=== PATIENT | male | born 1960 | race Hispanic/Latino ===

== ENCOUNTER 2018-10-28 18:47 | Inpatient (IN) | payer OTHER ==
[~2018-10-28] VITALS: Ht 172.7 cm; Wt 71.2 kg
[2018-10-28] MEDS ORDERED: NITROGLYCERIN 50 MG/D5% WATER 1 BOT ONE (19:25)
[2018-10-28] MEDS ORDERED: ASPIRIN 81MG TAB.CHEW ONE (19:26)
[2018-10-28 19:55] LABS: EOSINOPHILS % (AUTO) 1.8 % (0.0-8.0); LYMPHOCYTES % (AUTO) 21.4 % (21.0-51.0); MEAN CORPUSCULAR HEMOGLOBIN 29.1 pg (27.0-33.0); MEAN CORPUSCULAR HGB CONC 33.9 g/dL (32.0-36.0); MEAN CORPUSCULAR VOLUME 85.9 fL (79-99); MONOCYTES % (AUTO) 7.2 % (3.0-13.0); NEUTROPHILS % (AUTO) 66.6 % (40.0-77.0); PLATELET COUNT (AUTO) 259 K/uL (130-400); RED BLOOD CELL COUNT(AUTO) 4.89 MIL/uL (4.50-6.20); RED CELL DISTRIBUTION WIDTH 14.8 % (11.0-15.5); WHITE BLOOD COUNT (AUTO) 8.8 K/uL (4.8-10.8)
[2018-10-28 20:16] LABS: INR 0.95 (0.85-1.15); PARTIAL THROMBOPLASTIN TIME 29.4 SEC (26.3-35.5)
[2018-10-28 20:23] LABS: POTASSIUM 3.9 mmol/L (3.5-5.1)
[2018-10-28 20:26] LABS: AMPHET/METH SCREEN,URINE NEGATIVE (NEGATIVE); BARBITURATE SCREEN, URINE NEGATIVE (NEGATIVE); BENZODIAZEPINES SCREEN,URINE NEGATIVE (NEGATIVE); CANNABINOID SCREEN,URINE POSITIVE (NEGATIVE); COCAINE SCREEN,URINE NEGATIVE (NEGATIVE); OPIATE SCREEN,URINE NEGATIVE (NEGATIVE); PHENCYCLIDINE SCREEN,URINE NEGATIVE (NEGATIVE)
[2018-10-28 20:27] LABS: B-TYPE NATRIURETIC PEPTIDE 138 pg/mL (0-100)
[2018-10-28 20:30] LABS: BILIRUBIN,TOTAL 0.4 mg/dL (0.2-1.0); TOTAL PROTEIN, SERUM 8.1 g/dL (6.0-8.3)
[2018-10-28] MEDS: SODIUM CHLORIDE 0.9% 1000ML 1,000 ML IV SCH (22:04)
[2018-10-28] MEDS ORDERED: SODIUM CHLORIDE 0.9% 1000ML 1,000 ML IV ONE (22:53)
[2018-10-28] MEDS ORDERED: NITROGLYCERIN 1GM/1 INCH PACKET TD SCH (23:00)
[2018-10-28] MEDS ORDERED: NITROGLYCERIN 50 MG/D5% WATER 250 BOT IV PRN (23:30)
[2018-10-28 23:40] LABS: CHOLESTEROL 217 mg/dL (<200); HDL CHOLESTEROL 52 mg/dL (29-71); LDL DIRECT 151 mg/dL (0-99); TRIGLYCERIDES 92 mg/dL (30-200)
[2018-10-28 23:50] LABS: TROPONIN I 0.07 ng/mL (0.00-0.06)
[2018-10-29] VITALS (50 sets, daily range): BP systolic 132–181; BP diastolic 66–110
--- NOTE | 2018-10-29 01:45 | NUR ---
TRANSFERRED FROM ER STRETCHER TO ICU BED AMBULATING WITHOUT DIFFICULTY; GAIT IS STRONG AND PURPOSEFUL. O2 APPLIED VIA N/C AT 2LPM; GOVERNMENT AUDITOR LEADS APPLIED WELL PULSE OX PROBE AND BP CUFF. PT IS HYPERTENSIVE WITH NTG DRIP INFUSING AT 45MCG/MIN. PT DENIES ANY CHEST PAIN. WILL CONTINUE TO MONITOR.
--- NOTE | 2018-10-29 02:00 | NUR ---
NTG RATE INCREASED FOR ELEVATED BP TO 75MCG (22.5ML/HR). WILL MONITOR CLOSELY.
--- NOTE | 2018-10-29 03:55 | NUR ---
PT C/O HEADACHE. EDUCATED THAT NTG SIDE EFFECT OFTEN CAUSES H/A. PT DENIES ANY CHESTPAIN REQUESTING NTG BE TURNED OFF; RATE DECREASED. WILL ADMINISTER APRESOLINE FOR HYPERTENSION.
[2018-10-29] MEDS: HYDRALAZINE HCL 20 MG/ML VIAL IV PRN (03:58)
[2018-10-29] MEDS ORDERED: MORPHINE SULFATE 2 MG/ML 1ML SYG IVP PRN (05:45)
--- NOTE | 2018-10-29 05:45 | NUR ---
PT C/O CHEST PAIN. NTG DRIP RATE INCREASED. EMESIS DONE OFF SIDE OF BED. BP REMAINS ELEVATED. ALSO C/O CHILLS. TEMP=97.7. CX=113. NTG RATE AGAIN INCREASED TO EFFECT. EKG DONE. NOTIFIED ZACK OF PT STATUS. ORDERS RECEIVED AND CARRIED OUT.
[2018-10-29 05:57] LABS: BASOPHILS % (AUTO) 0.9 % (0.0-5.0); HEMATOCRIT 42.1 % (42-54); LYMPHOCYTES % (AUTO) 12.3 % (21.0-51.0); MEAN CORPUSCULAR HEMOGLOBIN 29.5 pg (27.0-33.0); MEAN CORPUSCULAR HGB CONC 34.1 g/dL (32.0-36.0); MEAN CORPUSCULAR VOLUME 86.5 fL (79-99); MONOCYTES % (AUTO) 4.9 % (3.0-13.0); NEUTROPHILS % (AUTO) 80.9 % (40.0-77.0); PLATELET COUNT (AUTO) 243 K/uL (130-400); RED BLOOD CELL COUNT(AUTO) 4.86 MIL/uL (4.50-6.20); RED CELL DISTRIBUTION WIDTH 14.6 % (11.0-15.5); WHITE BLOOD COUNT (AUTO) 12.8 K/uL (4.8-10.8)
[2018-10-29 06:11] LABS: CREATINE KINASE, TOTAL 98 U/L (21-232); MYOGLOBIN 41 ng/mL (10-92); TROPONIN I < 0.04 ng/mL (0.00-0.06)
--- NOTE | 2018-10-29 06:20 | NUR ---
BEVELER CHUCK HAS PAGED TWICE. AWAITING CALL BACK.
--- NOTE | 2018-10-29 06:35 | NUR ---
BARBARA CASTELAN MADE AWARE OF NEED TO SPEAK TO . CELL NUMBER RECEIVED AND CALLING NOW.
--- NOTE | 2018-10-29 06:40 | NUR ---
SPOKE TO . UPDATED ON PT STATUS, VS'S, LAB RESULTS, AND NTG DRIP RATE. ORDERS RECEIVED.
[2018-10-29] MEDS: ONDANSETRON HCL 4 MG/2 ML VIAL IVP PRN ×2 (06:48→16:37)
--- NOTE | 2018-10-29 07:00 | NUR ---
REPORT GIVEN TO JUAN DANIEL JOINER NOW. RV=[id number], PT RESTING WELL AFTER GIVING MORPHINE AND ZOFRAN. NO FURTHER VOMITING. PT STATED CP RATED AT "1 OR 2" ON SCALE 0-10. DUE TO RECENT EMESIS AND BP STABLE AT THIS TIME, MARISEL FRANCES WANTS TO HOLD OFF ON GIVING TRANDATE AND PO ELIXIR KCL UNTIL CONTACTING . CHAZ ROD NOW.
[2018-10-29] MEDS ORDERED: POTASSIUM CHLORIDE 10% ELIXIR 20 MEQ/15 ML UDCUP ONE (07:01)
[2018-10-29] MEDS: LABETALOL HCL 5 MG/ML 20ML VIAL IV SCH ×6 (07:18→16:17)
[2018-10-29] MEDS ORDERED: MAGNESIUM 2GM PREMIX 50ML 50 ML IV PRN (08:00)
[2018-10-29] MEDS ORDERED: POTASSIUM CHLORIDE 20 MEQ ERTAB PO PRN (08:00)
[2018-10-29] MEDS ORDERED: LIDOCAINE HCL-MPF 1% 2ML VIAL IVP PRN (08:00)
[2018-10-29] MEDS: POTASSIUM CHLORIDE 20MEQ/100ML 100 ML IV PRN ×2 (08:10→11:32)
[2018-10-29] MEDS: SODIUM CHLORIDE 0.9% 1000ML 1,000 ML IV SCH ×3 (08:37→19:43)
[2018-10-29] MEDS ORDERED: ASPIRIN 325 MG TABLET PO SCH (09:00)
[2018-10-29] MEDS: ENOXAPARIN SODIUM 40 MG/0.4 ML SYRINGE SQ SCH (09:00)
[2018-10-29] MEDS ORDERED: ATORVASTATIN CALCIUM 20 MG TABLET PO SCH (09:00)
[2018-10-29] MEDS ORDERED: METOPROLOL TARTRATE 25 MG TAB PO SCH (09:00)
[2018-10-29] MEDS ORDERED: LISINOPRIL 20 MG TABLET PO SCH (09:00)
[2018-10-29] MEDS: POTASSIUM CHLORIDE 10% ELIXIR 20 MEQ/15 ML UDCUP PO SCH ×5 (09:00→19:40)
[2018-10-29] MEDS: FAMOTIDINE 20MG TAB 20 MG TAB PO SCH ×2 (10:30→20:12)
--- NOTE | 2018-10-29 11:20 | NUR ---
DR NAQVI AT [facility] EXPLAINS NEED FOR LHC TO PT AND SPOUSE - EXPLAINED PROCEDURE AND RISKS - QUESTIONS ANSWERED - SEE ORDERS.-
[2018-10-29 12:07] LABS: TROPONIN I 2.01 ng/mL (0.00-0.06)
[2018-10-29] MEDS ORDERED: IOHEXOL-350 50ML VIAL IV ONE (12:08)
[2018-10-29] MEDS ORDERED: NITROGLYCERIN 5 MG/ML 10 ML VIAL IV ONE (12:08)
[2018-10-29] MEDS ORDERED: IOHEXOL 350 MG/ML 100ML INFUS..BTL IV ONE ×2 (12:08→13:17)
[2018-10-29] MEDS ORDERED: LIDOCAINE HCL 2% 20ML ONE (12:08)
--- NOTE | 2018-10-29 12:16 | NUR ---
TO PRECISION PRINTING WORKER VIA BED BY PRECISION PRINTING WORKER TEAM.
[2018-10-29] MEDS ORDERED: BIVALIRUDIN 250 MG/VIAL IV ONE (12:57)
[2018-10-29] MEDS ORDERED: LABETALOL 20 MG/4 ML DISP.SYRIN IV ONE ×2 (13:11→14:10)
[2018-10-29] MEDS ORDERED: VERAPAMIL HCL 2.5 MG/ML VIAL ONE (13:17)
[2018-10-29] MEDS ORDERED: ADENOSINE 3 MG/ML 2ML VIAL IV ONE (13:17)
[2018-10-29] MEDS ORDERED: EPTIFIBATIDE 2 MG/ML 10 ML VIAL IVP ONE (13:34)
[2018-10-29] MEDS ORDERED: EPTIFIBATIDE 75MG/100ML BOTTLE 100 ML IV ONE (13:34)
[2018-10-29] MEDS ORDERED: TICAGRELOR 90 MG TABLET ONE (13:43)
[2018-10-29] MEDS ORDERED: ASPIRIN 325MG EC TAB 325 MG TABLET.DR PO ONE (13:43)
[2018-10-29] MEDS ORDERED: LOSARTAN 50 MG TABLET PO SCH (13:45)
[2018-10-29] MEDS ORDERED: NITROGLYCERIN 50 MG/D5% WATER 1 BOT IV PRN (13:45)
[2018-10-29] MEDS ORDERED: EPTIFIBATIDE 75MG/100ML BOTTLE 100 ML IV PRN (14:30)
--- NOTE | 2018-10-29 14:37 | NUR ---
RECEIVED FROM ASSISTANT SPA MANAGER VIA BED - JOE CP - RT GROIN SITE STABLE - SEE POST CATH ASSESSMENT INTERVENTION. NOTE MOUTH BLOODY FROM POOR DENTATION W INTEGRILLIN DRIP - DR. NAQVI AWARE.
--- NOTE | 2018-10-29 15:19 | NUR ---
cm note met with pateint and , pt resides at home with spouse, independent with adls and self care. no dme. dc plan is back to home. no dc needs. Addendum: 10/29/18 at 1521 by JUDD DENTON CM Amended: Links added.
[2018-10-29] MEDS: CARVEDILOL 6.25 MG TABLET PO SCH ×2 (15:25→20:12)
[2018-10-29] MEDS: LOSARTAN 50 MG TABLET PO SCH (15:26)
--- NOTE | 2018-10-29 16:45 | NUR ---
EMESIS: DARK TEA COLORED LIQUID - VOMITED 3 CONSECUTIVE TIMES. UMER - SEE HERIBERTO Francois DR. PAGEMimi.
[2018-10-29 16:46] LABS: OCCULT BLOOD,GASTRIC FLUID POSITIVE (NEGATIVE)
[2018-10-29] MEDS ORDERED: PANTOPRAZOLE 40 MG/VIAL IVP SCH (17:00)
[2018-10-29 17:16] LABS: HEMATOCRIT 36.1 % (42-54)
[2018-10-29] MEDS ORDERED: NITROGLYCERIN 50 MG/D5% WATER 250 BOT IV PRN (17:30)
[2018-10-29] MEDS: TICAGRELOR 90 MG TABLET PO SCH (20:11)
[2018-10-30] VITALS (20 sets, daily range): BP systolic 114–177; BP diastolic 52–104
[2018-10-30 00:13] LABS: HEMATOCRIT 36.1 % (42-54)
[2018-10-30 04:09] LABS: HEMATOCRIT 36.4 % (42-54); MEAN CORPUSCULAR HEMOGLOBIN 28.8 pg (27.0-33.0); MEAN CORPUSCULAR HGB CONC 33.3 g/dL (32.0-36.0); MEAN CORPUSCULAR VOLUME 86.7 fL (79-99); PLATELET COUNT (AUTO) 243 K/uL (130-400); WHITE BLOOD COUNT (AUTO) 14.4 K/uL (4.8-10.8)
[2018-10-30 04:38] LABS: POTASSIUM 3.4 mmol/L (3.5-5.1)
[2018-10-30 04:58] LABS: TROPONIN I 53.42 ng/mL (0.00-0.06)
[2018-10-30] MEDS: ENOXAPARIN SODIUM 40 MG/0.4 ML SYRINGE SQ SCH (07:47)
[2018-10-30] MEDS: FAMOTIDINE 20MG TAB 20 MG TAB PO SCH ×2 (07:47→20:22)
[2018-10-30] MEDS: PANTOPRAZOLE SODIUM 40 MG TABLET.DR PO SCH (08:01)
[2018-10-30] MEDS: ATORVASTATIN CALCIUM 40 MG TABLET PO SCH (08:01)
[2018-10-30] MEDS: TICAGRELOR 90 MG TABLET PO SCH ×2 (08:02→20:22)
[2018-10-30] MEDS: LOSARTAN 50 MG TABLET PO SCH ×2 (08:02→08:22)
[2018-10-30] MEDS: CARVEDILOL 6.25 MG TABLET PO SCH (08:02)
[2018-10-30] MEDS: ASPIRIN 81MG TAB.CHEW PO SCH (08:02)
[2018-10-30] MEDS ORDERED: ASPI-1005 PO (08:27)
[2018-10-30] MEDS ORDERED: Isosorbide Mono 30MG Tab Sr PO (08:27)
[2018-10-30] MEDS ORDERED: TICA90TA PO (08:27)
[2018-10-30] MEDS ORDERED: CARV6.2579 PO (08:27)
[2018-10-30] MEDS ORDERED: ATOR40TA69 PO (08:27)
[2018-10-30] MEDS ORDERED: FAMO20TA8 PO (08:27)
[2018-10-30] MEDS ORDERED: LOSA50TA2 PO (08:27)
[2018-10-30] MEDS ORDERED: ISOSORBIDE MONO 30MG TAB SR PO SCH (09:00)
[2018-10-30 11:15] LABS: HEMATOCRIT 36.8 % (42-54)
[2018-10-30] MEDS: POTASSIUM CHLORIDE 10% ELIXIR 20 MEQ/15 ML UDCUP PO PRN ×2 (15:36→17:25)
[2018-10-30] MEDS: HYDRALAZINE HCL 20 MG/ML VIAL IV PRN (15:39)
--- NOTE | 2018-10-30 16:59 | NUR ---
ARRIVAL TO FLOOR WALKING TO ROOM 224. TRANSFER FROM ROOM 218. AAOX4 DENIES CP DENIES SOB DENIES NV NO COMPLAINTS, TELE PACK ON PATIENT.
[2018-10-30] MEDS: CARVEDILOL 12.5 MG TABLET PO SCH (20:22)
[2018-10-31] VITALS (7 sets, daily range): BP systolic 121–165; BP diastolic 78–97
--- NOTE | 2018-10-31 02:21 | NUR ---
PATIENT RESTING IN BED. AMBULATES INDEPENDENTLY WITH A STEADY GAIT. DENIES CHEST PAIN OR SOB. NO NAUSEA OR VOMITING. MEDICATION ADMINISTERED ORDERED. CALL LIGHT WITHIN REACH. WILL CONTINUE TO MONITOR.
[2018-10-31] MEDS: LOSARTAN 50 MG TABLET PO SCH (07:21)
[2018-10-31] MEDS: ASPIRIN 81MG TAB.CHEW PO SCH (07:21)
[2018-10-31] MEDS: FAMOTIDINE 20MG TAB 20 MG TAB PO SCH ×2 (07:21→21:39)
[2018-10-31] MEDS: TICAGRELOR 90 MG TABLET PO SCH ×2 (07:21→21:39)
[2018-10-31] MEDS: ATORVASTATIN CALCIUM 40 MG TABLET PO SCH (07:21)
[2018-10-31] MEDS: PANTOPRAZOLE SODIUM 40 MG TABLET.DR PO SCH (07:21)
[2018-10-31] MEDS: ENOXAPARIN SODIUM 40 MG/0.4 ML SYRINGE SQ SCH (07:22)
[2018-10-31] MEDS: CARVEDILOL 12.5 MG TABLET PO SCH (07:22)
--- NOTE | 2018-10-31 08:00 | NUR ---
ASSESSMENT PT IS AAOX3 DENIES CP DENIES SOB DENIES NV NO COMPLAINTS RESTING IN BED. AM MEDS GIVEN. FAMILY IS AT BEDSIDE, CALL LIGHT WITHIN REACH.
--- NOTE | 2018-10-31 09:30 | NUR ---
MD ROUNDS DR JONATHAN NAQVI ROUNDED. SAW PATIENT ORDERS RECEIVED.
--- NOTE | 2018-10-31 14:00 | NUR ---
STATUS NO COMPLAINTS. DENIES PAIN. FAMILY AT BEDSIDE, CALL LIGHT WITHIN REACH.
[2018-10-31] MEDS: HYDRALAZINE HCL 20 MG/ML VIAL IV PRN (16:54)
[2018-10-31] MEDS: CARVEDILOL 6.25 MG TABLET PO SCH (21:39)
[2018-11-01 01:19] VITALS: BP 147/96
[2018-11-01 04:00] VITALS: BP 157/99
[2018-11-01 04:15] LABS: HEMATOCRIT 39.2 % (42-54); MEAN CORPUSCULAR HGB CONC 33.2 g/dL (32.0-36.0); MEAN CORPUSCULAR VOLUME 87.4 fL (79-99); PLATELET COUNT (AUTO) 223 K/uL (130-400); RED BLOOD CELL COUNT(AUTO) 4.48 MIL/uL (4.50-6.20); RED CELL DISTRIBUTION WIDTH 14.9 % (11.0-15.5); WHITE BLOOD COUNT (AUTO) 9.8 K/uL (4.8-10.8)
[2018-11-01 04:19] LABS: CREATININE 1.3 mg/dL (0.5-1.5); POTASSIUM 3.9 mmol/L (3.5-5.1)
[2018-11-01 07:41] VITALS: BP 169/91
[2018-11-01] MEDS: ASPIRIN 81MG TAB.CHEW PO SCH (08:47)
[2018-11-01] MEDS: ATORVASTATIN CALCIUM 40 MG TABLET PO SCH (08:48)
[2018-11-01] MEDS: TICAGRELOR 90 MG TABLET PO SCH (08:48)
[2018-11-01] MEDS: PANTOPRAZOLE SODIUM 40 MG TABLET.DR PO SCH (08:48)
[2018-11-01] MEDS: CARVEDILOL 6.25 MG TABLET PO SCH (08:50)
[2018-11-01] MEDS: FAMOTIDINE 20MG TAB 20 MG TAB PO SCH (08:50)
[2018-11-01] MEDS: LOSARTAN 50 MG TABLET PO SCH (08:52)
[2018-11-01 11:40] VITALS: BP 153/95
--- NOTE | 2018-11-01 13:30 | NUR ---
DISCHARGE INSTRUCTIONS/INFORMATION GIVEN TO PATIENT AND . TEACH BACK METHOD USED TO EDUCATE PATIENT ON DIET, NEW MEDICATIONS PRESCRIBED, S/S TO LOOK FOR , WHEN TO CALL MD, ACTIVITY, AND F/U APPOINTMENTS. PIV REMOVED. TIP WAS INTACT. TELE PACK REMOVED AND RETURNED. ALL BELONGINGS PACKED. PATIENT REFUSED WHEELCHAIR AND INSISTED ON WALKING TO CAR. PATIENT SAFELY MADE IT TO HIS VEHICLE.
== END 2018-11-01 13:30 | disposition home or self-care (01) | DRG 246 ==
LOC: EDH 18:47 → OBSVTOIN 18:48 → EDHIP 18:48 → 2CH 10-29 01:43 → 2DH 10-30 16:15
PROVIDERS: ADMIT Hospitalist; ATTEND Hospitalist
PROC: B2151ZZ Fluoroscopy of Left Heart using Low Osmolar Contrast (ICD-10-PCS; principal; 2018-10-29)
PROC: 027034Z Dilation of Coronary Artery, One Artery with Drug-eluting Intraluminal Device, Percutaneous Approach (ICD-10-PCS; 2018-10-29)
PROC: 02C03ZZ Extirpation of Matter from Coronary Artery, One Artery, Percutaneous Approach (ICD-10-PCS; 2018-10-29)
PROC: B2111ZZ Fluoroscopy of Multiple Coronary Arteries using Low Osmolar Contrast (ICD-10-PCS; 2018-10-29)
PROC: 4A023N7 Measurement of Cardiac Sampling and Pressure, Left Heart, Percutaneous Approach (ICD-10-PCS; 2018-10-29)
DX: I21.4 Non-ST elevation (NSTEMI) myocardial infarction (principal); I50.31 Acute diastolic (congestive) heart failure; I25.10 Atherosclerotic heart disease of native coronary artery without angina pectoris; I11.0 Hypertensive heart disease with heart failure; E78.2 Mixed hyperlipidemia; F12.90 Cannabis use, unspecified, uncomplicated; K06.8 Other specified disorders of gingiva and edentulous alveolar ridge; F17.210 Nicotine dependence, cigarettes, uncomplicated; Z79.899 Other long term (current) drug therapy; Z87.442 Personal history of urinary calculi; Z91.14 Patient's other noncompliance with medication regimen
CPT/HCPCS: 36415; 71045; 80048; 80053; 80061; 80305; 82271; 82550; 82948; 83690; 83735; 83874; 83880; 84132; 84484; 85014; 85018; 85025; 85027; 85610; 85730; 93005; 93458; 99291; C1725; C1760; C1769; C1887; C1894; C9113; C9600; G0378; J0153; J0360; J0583; J1327; J1644; J1650; J2405; J3475; J3480; J3490; J7030; Q9967

== ENCOUNTER 2018-11-14 09:58 | Emergency (ER) | payer MEDICAID, OTHER ==
[~2018-11-14 09:58] MED LIST: ASPI-1005 PO; ATOR40TA69 PO; CARV6.2579 PO; FAMO20TA8 PO; LOSA50TA2 PO; TICA90TA PO
[2018-11-14 10:30] LABS: BASOPHILS % (AUTO) 1.1 % (0.0-5.0); EOSINOPHILS % (AUTO) 2.1 % (0.0-8.0); HEMATOCRIT 39.9 % (42-54); LYMPHOCYTES % (AUTO) 11.9 % (21.0-51.0); MEAN CORPUSCULAR HGB CONC 33.6 g/dL (32.0-36.0); MEAN CORPUSCULAR VOLUME 86.4 fL (79-99); MONOCYTES % (AUTO) 5.5 % (3.0-13.0); NEUTROPHILS % (AUTO) 79.4 % (40.0-77.0); PLATELET COUNT (AUTO) 326 K/uL (130-400); RED BLOOD CELL COUNT(AUTO) 4.62 MIL/uL (4.50-6.20); RED CELL DISTRIBUTION WIDTH 14.2 % (11.0-15.5); WHITE BLOOD COUNT (AUTO) 9.6 K/uL (4.8-10.8)
[2018-11-14 10:33] LABS: CREATININE 1.4 mg/dL (0.5-1.5); POTASSIUM 3.6 mmol/L (3.5-5.1)
[2018-11-14 10:37] LABS: ALBUMIN 3.2 g/dL (3.5-5.0); BILIRUBIN,TOTAL 0.5 mg/dL (0.2-1.0); TOTAL PROTEIN, SERUM 7.8 g/dL (6.0-8.3)
[2018-11-14] MEDS ORDERED: SODIUM CHLORIDE 0.9% 1000ML 1,000 ML IV ONE (12:09)
[2018-11-14] MEDS ORDERED: IOHEXOL 350 MG/ML 100ML INFUS..BTL IV ONE (12:09)
== END 2018-11-14 13:57 | disposition home or self-care (01) ==
LOC: EDH 09:58
DX: F41.0 Panic disorder [episodic paroxysmal anxiety] (principal); R06.00 Dyspnea, unspecified; I10 Essential (primary) hypertension; I25.2 Old myocardial infarction; Z87.442 Personal history of urinary calculi; Z87.891 Personal history of nicotine dependence; Z95.1 Presence of aortocoronary bypass graft
CPT/HCPCS: 36415; 71045; 71275; 80053; 83880; 84484; 85025; 85378; 93005; 99285; J7030; Q9967

== ENCOUNTER 2019-02-24 10:59 | Emergency (ER) | payer MEDICAID ==
[2019-02-24] MEDS ORDERED: ONDANSETRON HCL 4 MG/2 ML VIAL ONE (11:30)
[2019-02-24] MEDS ORDERED: CLINDAMYCIN 600 MG/D5% WATER 50 ML IV ONE (11:30)
[2019-02-24] MEDS ORDERED: MORPHINE SULFATE 4 MG/1ML SYG ONE (11:31)
[2019-02-24 11:36] LABS: EOSINOPHILS % (AUTO) 0.8 % (0.0-8.0); HEMATOCRIT 41.7 % (42-54); LYMPHOCYTES % (AUTO) 13.9 % (21.0-51.0); MEAN CORPUSCULAR HEMOGLOBIN 30.1 pg (27.0-33.0); MEAN CORPUSCULAR VOLUME 88.6 fL (79-99); MONOCYTES % (AUTO) 8.1 % (3.0-13.0); NEUTROPHILS % (AUTO) 76.2 % (40.0-77.0); PLATELET COUNT (AUTO) 207 K/uL (130-400); RED CELL DISTRIBUTION WIDTH 14.8 % (11.0-15.5); WHITE BLOOD COUNT (AUTO) 13.1 K/uL (4.8-10.8)
[2019-02-24 11:46] LABS: CREATININE 1.1 mg/dL (0.5-1.5); POTASSIUM 4.1 mmol/L (3.5-5.1)
[2019-02-24 11:52] LABS: ALBUMIN 3.8 g/dL (3.5-5.0); BILIRUBIN,TOTAL 0.4 mg/dL (0.2-1.0); TOTAL PROTEIN, SERUM 8.3 g/dL (6.0-8.3)
== END 2019-02-24 12:06 | disposition home or self-care (01) ==
LOC: EDH 10:59
DX: K04.7 Periapical abscess without sinus (principal); R11.2 Nausea with vomiting, unspecified; L03.211 Cellulitis of face; I25.2 Old myocardial infarction; I10 Essential (primary) hypertension; Z87.442 Personal history of urinary calculi; Z98.890 Other specified postprocedural states
CPT/HCPCS: 36415; 80053; 85025; 96365; 96375; 99284; J2270; J2405; J3490

== ENCOUNTER 2019-08-28 11:38 | Emergency (ER) | payer MEDICAID ==
[2019-08-28 12:21] LABS: BASOPHILS % (AUTO) 0.6 % (0.0-5.0); EOSINOPHILS % (AUTO) 0.7 % (0.0-8.0); HEMATOCRIT 38.2 % (42-54); LYMPHOCYTES % (AUTO) 12.7 % (21.0-51.0); MEAN CORPUSCULAR HEMOGLOBIN 29.5 pg (27.0-33.0); MEAN CORPUSCULAR VOLUME 86.6 fL (79-99); MONOCYTES % (AUTO) 6.5 % (3.0-13.0); NEUTROPHILS % (AUTO) 79.3 % (40.0-77.0); PLATELET COUNT (AUTO) 250 K/uL (130-400); RED BLOOD CELL COUNT(AUTO) 4.41 MIL/uL (4.50-6.20); RED CELL DISTRIBUTION WIDTH 13.2 % (11.0-15.5); WHITE BLOOD COUNT (AUTO) 12.1 K/uL (4.8-10.8)
[2019-08-28 12:30] LABS: CREATININE 1.3 mg/dL (0.5-1.5); POTASSIUM 3.3 mmol/L (3.5-5.1)
[2019-08-28 12:32] LABS: INR 0.95 (0.85-1.15); PARTIAL THROMBOPLASTIN TIME 29.4 SEC (26.3-35.5); PROTHROMBIN TIME 10.3 SEC (9.6-11.6)
[2019-08-28] MEDS ORDERED: KETOROLAC TROMETHAMINE 30MG/ML ONE (12:34)
[2019-08-28] MEDS ORDERED: ONDANSETRON HCL 4 MG/2 ML VIAL ONE (12:34)
[2019-08-28] MEDS ORDERED: SODIUM CHLORIDE 0.9% 1000ML 1,000 ML IV ONE (12:34)
[2019-08-28 12:37] LABS: ALBUMIN 3.5 g/dL (3.5-5.0); BILIRUBIN,DIRECT 0.1 mg/dL (0.0-0.3); BILIRUBIN,TOTAL 0.8 mg/dL (0.2-1.0); TOTAL PROTEIN, SERUM 7.9 g/dL (6.0-8.3)
[2019-08-28 13:17] LABS: APPEARANCE,URINE Clear (CLEAR); BILIRUBIN,URINE Negative (NEGATIVE); COLOR,URINE Yellow (YELLOW); GLUCOSE, URINE (UA) Negative (NEGATIVE); KETONES,URINE Negative (NEGATIVE); LEUKOCYTE ESTERASE ,URINE Negative (NEGATIVE); NITRATE,URINE Negative (NEGATIVE); OCCULT BLOOD,URINE Negative (NEGATIVE); PROTEIN,URINE Negative (NEGATIVE)
[2019-08-28] MEDS ORDERED: CEFTRIAXONE SODIUM 1 GM ONE (15:08)
== END 2019-08-28 15:28 | disposition home or self-care (01) ==
LOC: EDH 11:38
DX: K57.92 Diverticulitis of intestine, part unspecified, without perforation or abscess without bleeding (principal); I10 Essential (primary) hypertension; I25.2 Old myocardial infarction; Z87.891 Personal history of nicotine dependence
CPT/HCPCS: 36415; 74176; 80048; 80076; 81003; 82550; 83690; 85025; 85610; 85730; 96361; 96374; 96375; 99284; J0696; J1885; J2405; J7030

== ENCOUNTER → 2022-07-28 | Outpatient (CLI) | payer MEDICAID ==
[2022-07-28 14:15] LABS: ALBUMIN 3.6 g/dL (3.5-5.0); CREATININE 1.2 mg/dL (0.5-1.5); POTASSIUM 4.3 mmol/L (3.5-5.1); TOTAL PROTEIN, SERUM 7.5 g/dL (6.0-8.3)
== END | disposition home or self-care (01) ==
LOC: LAB 09:59
PROVIDERS: ATTEND Internal Medicine Cardiovascular Disease
DX: I10 Essential (primary) hypertension (principal); E78.5 Hyperlipidemia, unspecified; I25.10 Atherosclerotic heart disease of native coronary artery without angina pectoris
CPT/HCPCS: 36415; 80053; 80061; 82306

== ENCOUNTER → 2023-01-25 | Outpatient (CLI) | payer MEDICAID ==
[~2023-01-25] MED LIST changes: +LOSA-418 PO; -LOSA50TA2 PO
[2023-01-25 12:17] LABS: BASOPHILS # (AUTO) 0.13 K/uL (0.00-0.20); BASOPHILS % (AUTO) 1.5 % (0.0-5.0); EOSINOPHILS # (AUTO) 0.35 K/uL (0.00-0.70); HEMATOCRIT 41.2 % (42-54); IMMATURE GRANULOCYTE ABSOLUTE 0.02 K/uL (0-1); LYMPHOCYTES # (AUTO) 2.5 K/uL (1.0-4.8); LYMPHOCYTES % (AUTO) 27.8 % (21.0-51.0); MEAN CORPUSCULAR HEMOGLOBIN 29.4 pg (27.0-33.0); MEAN CORPUSCULAR VOLUME 89.2 fL (79-99); MONOCYTES # (AUTO) 0.8 K/uL (0.1-1.0); MONOCYTES % (AUTO) 9.2 % (3.0-13.0); NEUTROPHILS # (AUTO) 5.1 K/uL (1.8-7.7); NEUTROPHILS % (AUTO) 57.3 % (40.0-77.0); PLATELET COUNT (AUTO) 333 K/uL (130-400); RED BLOOD CELL COUNT(AUTO) 4.62 MIL/uL (4.50-6.20); RED CELL DISTRIBUTION WIDTH 14.3 % (11.0-15.5); WHITE BLOOD COUNT (AUTO) 8.9 K/uL (4.8-10.8)
[2023-01-25 12:37] LABS: ALBUMIN 3.7 g/dL (3.5-5.0); BILIRUBIN,TOTAL 0.3 mg/dL (0.2-1.0); CREATININE 1.6 mg/dL (0.5-1.5); POTASSIUM 4.5 mmol/L (3.5-5.1); TOTAL PROTEIN, SERUM 7.9 g/dL (6.0-8.3)
== END | disposition home or self-care (01) ==
LOC: LAB 08:45
PROVIDERS: ATTEND Internal Medicine Cardiovascular Disease
DX: I11.0 Hypertensive heart disease with heart failure (principal); I50.32 Chronic diastolic (congestive) heart failure; E78.2 Mixed hyperlipidemia; I25.2 Old myocardial infarction
CPT/HCPCS: 36415; 80053; 80061; 82306; 85025

== ENCOUNTER 2024-03-09 20:16 | Emergency (ER) | payer OTHER, MEDICARE ==
[~2024-03-09] VITALS: Ht 172.7 cm; Wt 81.6 kg
[2024-03-09 20:22] VITALS: TEMP 98.1
[2024-03-09 20:30] LABS: BASOPHILS # (AUTO) 0.12 K/uL (0.00-0.20); BASOPHILS % (AUTO) 1.2 % (0.0-5.0); EOSINOPHILS # (AUTO) 0.25 K/uL (0.00-0.70); EOSINOPHILS % (AUTO) 2.6 % (0.0-8.0); HEMATOCRIT 43.6 % (42-54); IMMATURE GRANULOCYTE ABSOLUTE 0.04 K/uL (0-1); LYMPHOCYTES # (AUTO) 2.3 K/uL (1.0-4.8); MEAN CORPUSCULAR HEMOGLOBIN 28.9 pg (27.0-33.0); MEAN CORPUSCULAR HGB CONC 33.7 g/dL (32.0-36.0); MEAN CORPUSCULAR VOLUME 85.8 fL (79-99); MONOCYTES # (AUTO) 0.7 K/uL (0.1-1.0); MONOCYTES % (AUTO) 7.3 % (3.0-13.0); NEUTROPHILS # (AUTO) 6.3 K/uL (1.8-7.7); NEUTROPHILS % (AUTO) 64.5 % (40.0-77.0); PLATELET COUNT (AUTO) 301 K/uL (130-400); RED BLOOD CELL COUNT(AUTO) 5.08 MIL/uL (4.50-6.20); RED CELL DISTRIBUTION WIDTH 14.7 % (11.0-15.5); WHITE BLOOD COUNT (AUTO) 9.8 K/uL (4.8-10.8)
[2024-03-09 20:41] LABS: INR 0.95 (0.85-1.15); PROTHROMBIN TIME 10.3 SEC (9.6-11.6)
[2024-03-09 20:43] LABS: PARTIAL THROMBOPLASTIN TIME 27.4 SEC (26.3-35.5)
[2024-03-09 20:49] LABS: B-TYPE NATRIURETIC PEPTIDE 120 pg/mL (0-100)
[2024-03-09 21:05] LABS: CREATININE 1.4 mg/dL (0.5-1.3); MAGNESIUM 1.8 mg/dL (1.80-2.40); POTASSIUM 3.2 mmol/L (3.5-5.1)
[2024-03-09] MEDS: NITROGLYCERIN 0.4 MG SL TAB SL PRN (21:08)
[2024-03-09 23:04] LABS: ADD UA MICROSCOPIC YES; APPEARANCE,URINE CLEAR (CLEAR); BILIRUBIN,URINE NEGATIVE (NEGATIVE); COLOR,URINE COLORLESS (YELLOW); GLUCOSE, URINE (UA) 300 mg/dL (NEGATIVE); KETONES,URINE NEGATIVE (NEGATIVE); LEUKOCYTE ESTERASE ,URINE NEGATIVE Leu/uL (NEGATIVE); NITRATE,URINE NEGATIVE (NEGATIVE); OCCULT BLOOD,URINE NEGATIVE (NEGATIVE); PH,URINE 5.5 (5.0-8.0); PROTEIN,URINE 30 mg/dL (NEGATIVE); UROBILINOGEN,URINE 0.2 mg/dL (0.2-1.0)
[2024-03-09 23:06] VITALS: BP 157/98; PULSE 70; RESP 18; O2SAT 96
[2024-03-09 23:06] LABS: WBC,URINE 0-1 /HPF (0-1)
== END 2024-03-09 23:13 | disposition left against medical advice (07) ==
LOC: EDH 20:16
DX: I24.9 Acute ischemic heart disease, unspecified (principal); I21.4 Non-ST elevation (NSTEMI) myocardial infarction; E11.9 Type 2 diabetes mellitus without complications; E78.00 Pure hypercholesterolemia, unspecified; I10 Essential (primary) hypertension; Z79.02 Long term (current) use of antithrombotics/antiplatelets; Z79.82 Long term (current) use of aspirin; Z79.899 Other long term (current) drug therapy; Z95.5 Presence of coronary angioplasty implant and graft
CPT/HCPCS: 36415; 71045; 80048; 81001; 82550; 83735; 83880; 84484; 85025; 85610; 85730; 93005